=== PATIENT | female | born 1955 | race Caucasian/White ===

== ENCOUNTER → 2018-07-11 07:43 | Outpatient (CLI) | payer OTHER, MEDICAID, SELFPAY ==
[2018-07-11 09:05] LABS: Add Manual Diff / Slide Review NO; Basophils Percent Auto 0.5 % (0-2); Eosinophils Percent Auto 1.8 % (2-4); Hematocrit 41.5 % (36-46); Hemoglobin 14.8 g/dL (12.0-16.0); Lymphocytes Percent Auto 25.5 % (25-40); Mean Corpuscular HGB Conc 35.7 % (30-36); Mean Corpuscular Hemoglobin 30.8 PG (26-34); Monocytes Percent Auto 6.7 % (3-14); Neutrophils Absolute Auto 3800 /uL (3000-5900); Neutrophils Percent Auto 65.5 % (50-75); Platelet Count 166 X10^3/uL (150-400); Red Blood Cell Count 4.83 X10^6/uL (4.0-5.2); Red Cell Distribution Width 13.1 % (11.6-14.8); White Blood Cell Count 5.8 X10^3/uL (4.5-11.0)
[2018-07-11 09:14] LABS: Hemoglobin A1C% w Est Avg Glu 6.6 % (4.0-6.0)
[2018-07-11 09:47] LABS: Alanine Aminotransferase 72 IU/L (9-52); Albumin 4.5 g/dL (3.5-5.0); Albumin Globulin Ratio 1.4 (1.0-2.8); Alkaline Phosphatase 103 U/L (38-126); Aspartate Aminotransferase 64 IU/L (14-36); BUN Creatinine Ratio 23.3 (6-22); Bilirubin Total 2.3 mg/dL (0.2-1.3); Blood Urea Nitrogen 14 mg/dL (7-17); Calcium 9.7 mg/dL (8.4-10.2); Carbon Dioxide 30 mmol/L (22-32); Chloride 104 mmol/L (98-107); Cholesterol 180 mg/dL (140-199); Estimated Glomerular Filt Rate > 60.0 mL/min (>60); Globulin 3.3 g/dL (1.7-4.1); Glucose 182 mg/dL (80-110); HDL Cholesterol 39 mg/dL (40-60); HEMOLYSIS < 15 (0-50); LDL Cholesterol Calculated 97 mg/dL (<100); Potassium 4.2 mmol/L (3.4-5.1); Sodium 145 mmol/L (137-145); Total Protein 7.8 g/dL (6.3-8.2); Triglycerides 222 mg/dL (35-150)
[2018-07-11 10:01] LABS: Vitamin D 25 Hydroxy (D3) 40.1 ng/mL (30.0-100.0)
[2018-07-11 10:16] LABS: Thyroid Stimulating Hormone 2.46 uIU/mL (0.47-4.68)
== END ==
PROVIDERS: Family Provider Nurse Practitioner; PCP Nurse Practitioner; Visit Provider Specialist
DX: R53.83 Other fatigue (principal); R68.2 Dry mouth, unspecified; R73.9 Hyperglycemia, unspecified
CPT/HCPCS: 36415; 80053; 80061; 82306; 83036; 84443; 85025

== ENCOUNTER → 2022-12-16 15:02 | Outpatient (CLI) | payer MEDICARE, SELFPAY ==
--- NOTE | 2022-12-16 15:05 | DI.RAD.S_ITS ---
PROCEDURE: XR LUMBAR SPINE MIN 4V INDICATIONS: BACK AND HIP PAIN TECHNIQUE: 5 views of the lumbar spine were acquired, including bilateral oblique views. COMPARISON: None. FINDINGS: Bones: 5 nonrib-bearing vertebrae are present. There is normal bony alignment. No vertebral body compression fractures. No suspicious bony lesions. Soft tissues: Overlying bowel gas pattern is normal. No suspicious soft tissue calcifications. Oblique images: No pars defects. IMPRESSION: Multilevel degenerative changes with disc space narrowing at L2-3, L3-4, and L4-5. There is facet arthrosis in the lower lumbar spine. Dictated by: Lei Cartagena M.D. on 12/16/2022 at 14:43 Approved by: Lei Cartagena M.D. on 12/16/2022 at 14:44
== END ==
PROVIDERS: Family Provider Nurse Practitioner; PCP Nurse Practitioner; Referring Provider Physical Medicine & Rehabilitation; Visit Provider Physical Medicine & Rehabilitation
DX: M47.816 Spondylosis without myelopathy or radiculopathy, lumbar region (principal); M54.9 Dorsalgia, unspecified
CPT/HCPCS: 72110

== ENCOUNTER → 2022-12-26 18:17 | Outpatient (CLI) | payer MEDICARE, SELFPAY ==
--- NOTE | 2022-12-26 18:18 | DI.MRI.S_ITS ---
PROCEDURE: MR LUMBAR SPINE WO CON COMPARISON: None. INDICATIONS: lumbar stenosis FINDINGS: Degenerative straightening of the usual cervical lordosis. No listhesis. Vertebral body heights maintained. No suspicious focal marrow signal abnormality or bone marrow edema. Nonedematous degenerative endplate signal change at L2-L3, L4-L5, and L5-S1. Normal position and appearance of the conus. Regional soft tissues normal. At T12-L1, no spinal canal or neural foraminal stenosis. At L1-L2, no spinal canal or neural foraminal stenosis. At L2-L3, disc bulge flattens the ventral thecal sac. No mass effect upon the traversing L3 nerve roots. Mild neural foraminal narrowing due to facet hypertrophy and foraminal components of the disc material. At L3-L4, disc bulge and extrusion severely narrow the spinal canal with complete effacement of CSF in the thecal sac and crowding of the traversing nerve roots. Slight superior migration of extruded disc material measuring 5 mm. Foraminal components of the disc bulge and facet hypertrophy combine to produce moderate left and mild right neural foraminal narrowing. Bulky facet hypertrophy with subchondral cystic change and facet effusions. At L4-L5, disc bulge without mass effect upon the traversing L5 nerve roots. Mild neural foraminal narrowing due to foraminal components of the disc bulge and facet hypertrophy. At L5-S1, diffuse disc bulge with mild mass effect on the descending right S1 nerve roots in the right subarticular zone. Mild to moderate neural foraminal narrowing bilaterally. IMPRESSION: Severe spinal canal stenosis at L3-L4. Moderate neural foraminal narrowing on the left at L3-L4. Dictated by: Gregory Nice M.D. on 12/27/2022 at 15:52 Approved by: Gregory Nice M.D. on 12/27/2022 at 15:59
--- NOTE | 2022-12-26 18:18 | DI.MRI.S_ITS ---
PROCEDURE: MR HIP LT WO CON INDICATIONS: acute left anterior hip pain TECHNIQUE: Noncontrast coronal T1 spin echo and STIR through the bony pelvis. Coronal and axial T2 fast spin echo with fat saturation, sagittal T1 spin echo, and oblique axial T2 fast spin echo with fat saturation through the hip. COMPARISON: [facility], CR, XR PELVIS WITH LATERAL HIP RIGHT, 06/02/2022, 9:10. FINDINGS: Image quality: Excellent. Bones and joints: Bone marrow of the pelvic ring and proximal femurs show normal signal throughout. No intraosseous lesions or fractures. No avascular necrosis of the femoral heads. Disc space narrowing degenerative endplate changes and facet hypertrophy are seen in the included lumbar spine. Tendons and ligaments: An 8 x 4 x 6 mm calcification is seen adjacent to the greater trochanter at the gluteus medius tendon insertion that is suspicious for calcific tendinopathy. Gluteus medius and minimus tendinosis is seen and there is suspected partial tearing of the gluteus medius tendon at the insertion with relatively mild surrounding edema. The proximal iliotibial band appears intact. The iliopsoas tendon appears intact, without adjacent bursal fluid collections. The origin of the hamstring tendon demonstrates mild tendinosis. The direct and indirect heads of the rectus femoris muscle origin appear intact. There is suspected tendinosis and partial tearing of the right distal gluteus tendons and right-sided proximal hamstring tendinosis seen on large [id number] coronal images only. Labrum and cartilage: Fluid is seen at the chondrolabral junction at the anterosuperior labrum with smooth margins, favored to represent a normal sulcus rather than a recent tear. Mild partial-thickness cartilage thinning irregularity is seen at the superior aspect of the left hip. There is a small left hip effusion. There is normal morphology of the femoral head and the acetabulum. Soft tissues: Visualized muscles demonstrate normal bulk and internal signal. Quadratus femoris muscle demonstrates no internal edema to suggest ischiofemoral impingement. The proximal sciatic neurovascular bundle appears intact. A small uterine fibroid is noted. The included portions of the pelvis demonstrate no acute abnormality. IMPRESSION: 1. Partial tearing of the left distal gluteus medius tendon at its insertion onto the greater trochanter superimposed on gluteus medius and minimus tendinosis and calcific tendinopathy. 2. 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 Fluid signal at the chondrolabral junction at the anterosuperior left acetabular labrum with smooth margins is favored to represent a normal chondrolabral sulcus rather than a labral tear. 3. Mild proximal hamstring tendinosis bilaterally. 4. Tendinosis and suspected partial tearing of the right distal gluteus medius or minimus tendons, seen on large [id number] coronal images only. 5. Degenerative changes in the included lumbar spine. Approved by: Nelson Flynn M.D. on 12/27/2022 at 8:55
== END ==
PROVIDERS: Family Provider Nurse Practitioner; PCP Nurse Practitioner; Referring Provider Physical Medicine & Rehabilitation; Visit Provider Physical Medicine & Rehabilitation
DX: M47.26 Other spondylosis with radiculopathy, lumbar region (principal); M48.061 Spinal stenosis, lumbar region without neurogenic claudication; S76.012A Strain of muscle, fascia and tendon of left hip, initial encounter; M16.9 Osteoarthritis of hip, unspecified; M94.252 Chondromalacia, left hip
CPT/HCPCS: 72148; 73721

== ENCOUNTER → 2023-09-24 19:02 | Outpatient (CLI) | payer MEDICARE, SELFPAY ==
--- NOTE | 2023-09-24 19:04 | DI.MRI.S_ITS ---
PROCEDURE: MR CERVICAL SPINE WO CON INDICATIONS: cervical radiculopathy TECHNIQUE: Noncontrast sagittal T1 spin echo and T2 fast spin echo, sagittal STIR, foraminal oblique sagittal T2 fast spin echo, and axial gradient echo or T2 fast spin echo through the cervical spine. COMPARISON: None. FINDINGS: Image quality: Excellent. Alignment and Curvature: Trace anterolisthesis of C4 on C5. Trace anterolisthesis of C7 on T1. Bone Marrow: Marrow demonstrates normal overall signal. Spinal Cord: Visualized spinal cord has normal size and signal. No cerebellar tonsillar herniation. Paraspinous Soft Tissues: No paravertebral masses. Prevertebral soft tissues are normal in thickness. C2-C3: No canal stenosis or foraminal stenosis. C3-C4: Exuberant left facet arthropathy. No central canal stenosis. No significant right foraminal stenosis. Severe left foraminal stenosis with left foraminal C4 nerve root impingement. C4-C5: Exuberant left facet hypertrophy. Trace anterolisthesis of C4 on C5. Disc bulge. No central canal stenosis. Mild right foraminal narrowing. Severe left foraminal narrowing with left foraminal C5 nerve root impingement. C5-C6: Chronic disc height loss. Diffuse disc bulge mildly indenting on the cord. AP diameter of the central canal is 10.6 mm. There is bilateral uncovertebral joint hypertrophy and facet hypertrophy. There is moderately severe bilateral foraminal narrowing with bilateral foraminal C6 nerve root impingement. C6-C7: Chronic disc height loss. Diffuse posterior disc plus osteophyte. Flattening of the ventral cord. AP diameter of the central canal is 9.1 mm. Bilateral uncovertebral joint hypertrophy and facet hypertrophy. Severe right foraminal narrowing with right foraminal C7 nerve root impingement. Mild to moderate left foraminal narrowing. C7-T1: Bilateral facet hypertrophy. Disc bulge. No central canal stenosis. Moderate left foraminal narrowing with mild flattening deformity on the exiting left C8 nerve root. IMPRESSION: 1. There is diffuse spondylitic change. Findings include exuberant left facet arthropathy at C3-C4 and C4-C5. 2. There is [id number] central canal stenosis at C6-C7. There is otherwise no significant canal stenosis. 3. Multilevel significant foraminal narrowing with foraminal nerve root impingement as described above. Findings include severe left foraminal stenosis at C3-C4 and C4-C5, moderately severe bilateral foraminal stenosis at C5-C6, and severe right foraminal stenosis at C6-C7. Dictated by: Steven Hernandez M.D. on 09/25/2023 at 8:12 Approved by: Steven Hernandez M.D. on 09/25/2023 at 8:21
== END ==
PROVIDERS: Family Provider Nurse Practitioner; PCP Nurse Practitioner; Referring Provider Physical Medicine & Rehabilitation; Visit Provider Physical Medicine & Rehabilitation
DX: M47.812 Spondylosis without myelopathy or radiculopathy, cervical region (principal); M48.02 Spinal stenosis, cervical region
CPT/HCPCS: 72141

== ENCOUNTER 2023-12-27 08:54 | Outpatient (CLI) | payer MEDICARE, SELFPAY ==
[2023-12-27] VITALS (9 sets, daily range): BP systolic 100–137; BP diastolic 54–65; PULSE 69–83; RESP 13–20; TEMP 36.4; O2SAT 95–99
--- NOTE | 2023-12-27 09:45 | DI.RAD.S_ITS ---
PROCEDURE: PAIN C/T FACET INJ/BLK 1ST L INDICATIONS: FACET ARTHOPATHY COMPARISON: None. FINDINGS: Fluoroscopic spot filming was performed to verify placement of spinal needles at the left C4-5, C5-6, and C6-7 level(s), as labeled on the films. Appropriate location(s) of the needle tip(s) was confirmed by injection of iodinated contrast. IMPRESSION: Fluoroscopic support for left cervical spine facet joint injections from C4-5 through C6-7. Please see separate procedure note for further details. Dictated by: Jorge Vines M.D. on 12/27/2023 at 13:22 Approved by: Jorge Vines M.D. on 12/27/2023 at 13:23
[2023-12-27] MEDS: MIDAZOLAM 2 MG/2 ML VIAL IV (10:28)
[2023-12-27] MEDS: DEXAMETHASONE 10 MG/ML VIAL 30 MG INJ (10:34)
[2023-12-27] MEDS: iopamidoL 15 ML VIAL 3 ML INJ (10:35)
[2023-12-27] MEDS: MIDAZOLAM 2 MG/2 ML VIAL 1 MG IV (10:39)
[2023-12-27] MEDS: BUPIVACAINE 0.25% (PF) VIAL 2 ML INJ (10:45)
--- NOTE | 2023-12-27 10:50 | P.PCN_ITS ---
Date/Time/Diagnoses Date of procedure: 12/27/23 Time of procedure: 10:51 Pre-procedure diagnosis: 1. FACET ARTHROPATHY 2. AXIAL NECK PAIN Post-procedure diagnosis: same Procedure Notes Procedure: 1. FLUOROSCOPICALLY GUIDED, CONTRAST-CONTROLLED LEFT C4/5, C5/6 AND C6/7 FACET JOINT INJECTIONS WITH CONSCIOUS SEDATION. Indications: Angela is referred by JO ANN Viera for treatment of Axial Neck Pain Physician: Huber La Total Fluoroscopy time (seconds): 22 Total sedation minutes: 18 Complications: none Procedure in detail & Post-procedure care: DESCRIPTION OF PROCEDURE Fluoroscopically guided, contrast-controlled left C4/5, C5/6 and C6/7 facet joint injections with conscious sedation. Following review of allergy and review of potential side effects and complications, including, but not necessarily limited to, infection, allergic reaction, local tissue breakdown, stroke, temporary or permanent nerve injury and paralysis, the patient indicated that the patient understood and agreed to proceed. An informed consent document was signed by the patient, witnessed by a nurse, and placed in the patient's chart. Additionally, other treatment options including medications, modalities, and physical therapy were reviewed with the patient. After review of previous anaesthesic history and IV conscious sedation the patient was deemed safe to proceed with today?s procedure with IV conscious sed ation as ASA class II designation. Safety time-out was performed to confirm patient ID, procedure to be performed and site of procedure. IV sedation was accomplished with a combination of 3mg of Versed was administered by the RN after DO order, titrated to patient comfort during the course of the procedure while the patient remained responsive to all verbal commands In the prone position, following sterile prep and drape of the cervical spine region, the posterior aspect of the left C4/5, C5/6 and C6/7 facet joints were identified fluoroscopically. The skin was anesthetized via a 25-gauge 1.5-inch needle with 1% lidocaine solution into the corresponding facet joints. At this point, a 25-gauge 2.5-inch spinal needle was atraumatically introduced and advanced under fluoroscopic guidance into the corresponding facet joints. Following negative aspiration, injections of approximately 0.2cc of Isovue 200 confirmed interarticular placement without vascular uptake. At this point, a total of 1cc including 0.5cc or 5mg of dexamethasone combined with 0.5cc of 1% lidocaine solution was injected without complication into each of the corresponding facet joints. The procedure tolerated the procedure well without signs or symptoms of complications prior to transfer to the recovery area continued monitoring without incident. The patient was then transferred to the recovery area where they were observed for an appropriate period of time after the injection. The patient reported a VAS score of 7 prior to the procedure and a post- procedure VAS of 0. POST OP INSTRUCTIONS They were provided a Pain Log to continue to record their response to the target-specific procedure prior to their follow-up visit with their referring physician. Additionally, specific post-injection care instructions and a contact number to our office were provided if concerns arise regarding possible complications associated with the procedure are suspected.
== END 2023-12-27 11:06 | disposition home or self-care (01) ==
LOC: RAD 08:56
PROVIDERS: Family Provider Nurse Practitioner; PCP Nurse Practitioner; Referring Provider Physical Medicine & Rehabilitation; Visit Provider Physical Medicine & Rehabilitation
DX: M47.812 Spondylosis without myelopathy or radiculopathy, cervical region (principal)
CPT/HCPCS: 64490; 64491; 64492; 99152; J1100; J2250; J3490